=== PATIENT | female | born 2000 | race Caucasian/White ===

== ENCOUNTER → 2023-10-24 12:56 | Outpatient (CLI) | payer BC, OTHER, SELFPAY | PROVIDERS: Visit Provider Nurse Practitioner Family | DX: R30.0 Dysuria (principal); N89.8 Other specified noninflammatory disorders of vagina | CPT/HCPCS: 87086; 87210 ==

== ENCOUNTER → 2024-06-07 14:38 | Outpatient (CLI) | payer OTHER, BC, SELFPAY ==
--- NOTE | 2024-06-07 14:41 | DI.RAD.S_ITS ---
PROCEDURE: XR DEXA AXIAL SKELETON INDICATIONS: Ulcerative colitis, malabsorption COMPARISON: None. FINDINGS: Lumbar Spine: Bone mineral density 1.005 g/cm2, V score -0.3. Left Femoral Neck: Bone mineral density 0.742 g/cm2, Z score -1.0. Left Hip: Bone mineral density 0.928 g/cm2, Z score -0.1. IMPRESSION: Based on Z score, bone mineral density is normal. Follow-up guidelines as follows: Osteoporosis: Consider a repeat DEXA and Vertebral Fracture Assessment (VFA) exam in 2 years or sooner if medically necessary, to reassess this patient's status. Osteopenia: Consider a repeat DEXA in 2-3 years to reassess this patient's status, or if there is a new clinical indication. Normal: Consider a repeat DEXA in 5 years or sooner, or if there is a new clinical indication. All treatment decisions require clinical judgment and consideration of individual patient factors, including patient preferences, comorbidities, previous drug use, risk factors not captured in the FRAX model (e.g., frailty, falls, vitamin D deficiency, increased bone turnover, interval significant decline in bone density ) and possible under- or over-estimation of fracture risk by FRAX. In addition, the NOF Guide recommends that FDA-approved medical therapies be considered in postmenopausal women and men age >= 50 years with a: * Hip or vertebral (clinical or morphometric) fracture * T-score of <=-2.5 at the spine or hip * Ten-year fracture probability by FRAX of >= 3% for hip fracture or >=20% for major osteoporotic fracture. Dictated by: Harhsad Coles M.D. on 06/07/2024 at 15:50 Approved by: Harshad Coles M.D. on 06/07/2024 at 16:02
[2024-06-07 16:04] LABS: Add Manual Diff / Slide Review NO; Basophils Absolute Auto 0 /uL (0-100); Basophils Percent Auto 0.7 % (0-2); Eosinophils Absolute Auto 100 /uL (0-450); Eosinophils Percent Auto 1.4 % (2-4); Hematocrit 40.8 % (36-46); Lymphocytes Absolute Auto 2600 /uL (1100-4500); Lymphocytes Percent Auto 37.1 % (25-40); Mean Corpuscular HGB Conc 34.3 % (30-36); Mean Corpuscular Hemoglobin 30.4 PG (26-34); Mean Corpuscular Volume 88.8 fL (80-100); Monocytes Absolute Auto 500 /uL (0-900); Monocytes Percent Auto 6.4 % (3-14); Neutrophils Absolute Auto 3900 /uL (1500-7000); Neutrophils Percent Auto 54.4 % (50-75); Platelet Count 228 X10^3/uL (150-400); Red Blood Cell Count 4.59 X10^6/uL (4.0-5.2); Red Cell Distribution Width 12.1 % (11.6-14.8); White Blood Cell Count 7.1 X10^3/uL (4.5-11.0)
[2024-06-07 16:22] LABS: HEMOLYSIS < 15 (0-50); Iron 111 ug/dL (37-170)
[2024-06-07 16:23] LABS: Alanine Aminotransferase 40 IU/L (<35); Albumin 4.8 g/dL (3.5-5.0); Albumin Globulin Ratio 1.9 (1.0-2.8); Alkaline Phosphatase 86 U/L (38-126); Aspartate Aminotransferase 42 IU/L (14-36); BUN Creatinine Ratio 13.6 (6-22); Bilirubin Total 0.5 mg/dL (0.2-1.3); Blood Urea Nitrogen 9 mg/dL (7-17); Calcium 9.6 mg/dL (8.4-10.2); Carbon Dioxide 22 mmol/L (22-32); Chloride 105 mmol/L (98-107); Estimated Glomerular Filt Rate > 60 mL/min (>60); Globulin 2.5 g/dL (1.7-4.1); Glucose 91 mg/dL (70-100); HEMOLYSIS < 15 (0-50); Potassium 4.1 mmol/L (3.4-5.1); Sodium 138 mmol/L (137-145); Total Protein 7.3 g/dL (6.3-8.2)
[2024-06-07 16:33] LABS: Percent Iron Saturation 41 % (15-50); Total Iron Binding Capacity 269 ug/dL (265-497); Transferrin 222 mg/dL (206-381)
[2024-06-07 16:37] LABS: Vitamin D 25 Hydroxy (D3) 35.7 ng/mL (30.0-100.0)
[2024-06-07 16:56] LABS: Ferritin 25 ng/mL (6-137)
[2024-06-07 17:27] LABS: Folate 9.4 ng/mL (2.76-20.0); Vitamin B12 526 pg/mL (239-931)
== END ==
PROVIDERS: PCP Family Medicine; Referring Provider Family Medicine; Visit Provider Family Medicine
DX: K90.9 Intestinal malabsorption, unspecified (principal); K51.90 Ulcerative colitis, unspecified, without complications
CPT/HCPCS: 36415; 77080; 80053; 82306; 82607; 82728; 82746; 83540; 83550; 85025

== ENCOUNTER → 2024-06-13 14:43 | Outpatient (CLI) | payer BC, OTHER, SELFPAY | PROVIDERS: PCP Family Medicine; Referring Provider Family Medicine; Visit Provider Family Medicine | DX: K90.9 Intestinal malabsorption, unspecified (principal); K51.90 Ulcerative colitis, unspecified, without complications | CPT/HCPCS: 83993 ==

== ENCOUNTER → 2024-07-17 15:18 | Outpatient (CLI) | payer OTHER, SELFPAY ==
[2024-07-17 16:53] LABS: HEMOLYSIS < 15 (0-50); Iron 120 ug/dL (37-170)
[2024-07-17 16:57] LABS: Alanine Aminotransferase 40 IU/L (<35); Albumin 4.8 g/dL (3.5-5.0); Albumin Globulin Ratio 1.7 (1.0-2.8); Alkaline Phosphatase 88 U/L (38-126); Aspartate Aminotransferase 43 IU/L (14-36); BUN Creatinine Ratio 11.4 (6-22); Bilirubin Total 0.5 mg/dL (0.2-1.3); Blood Urea Nitrogen 8 mg/dL (7-17); Calcium 9.5 mg/dL (8.4-10.2); Carbon Dioxide 26 mmol/L (22-32); Chloride 104 mmol/L (98-107); Estimated Glomerular Filt Rate > 60 mL/min (>60); Globulin 2.8 g/dL (1.7-4.1); Glucose 83 mg/dL (70-99); HEMOLYSIS < 15 (0-50); Potassium 4.1 mmol/L (3.4-5.1); Sodium 139 mmol/L (137-145); Total Protein 7.6 g/dL (6.3-8.2)
[2024-07-17 17:03] LABS: Percent Iron Saturation 42 % (15-50); Total Iron Binding Capacity 289 ug/dL (265-497); Transferrin 244 mg/dL (206-381)
[2024-07-17 17:29] LABS: Ferritin 28 ng/mL (6-137)
== END ==
PROVIDERS: PCP Family Medicine; Referring Provider Family Medicine; Visit Provider Family Medicine
DX: R74.8 Abnormal levels of other serum enzymes (principal); E61.1 Iron deficiency; K90.9 Intestinal malabsorption, unspecified
CPT/HCPCS: 36415; 80053; 82728; 83540; 83550